=== PATIENT | male | born 1980 | race Hispanic/Latino ===

== ENCOUNTER 2017-05-31 22:48 | Emergency (ER) | payer OTHER ==
[2017-05-31 23:18] VITALS: BP 108/64; PULSE 62; RESP 18; TEMP 97.5; O2SAT 99
[2017-05-31] MEDS ORDERED: Glucagon Recombinant 1 mg Inj IM ONE (23:23)
--- NOTE | 2017-05-31 23:27 | ED PDOC ---
HPI: General Adult Time Seen by Provider: 05/31/17 23:05 Chief Complaint (Nursing): Abdominal Pain History Per: Patient Additional Complaint(s): Pt. states at approximately 2130 today he was eating boneless chicken strips when a piece of chicken became stuck in lower part of his throat. Pt. statse he attempted to vomit out the piece of food and also tried to drink water and eat carrots without relief. Pt. has had 2 similar occurrences and was able to treat himself at home. Denies pain, chest pain, SOB, sore throat. Past Medical History Reviewed: Historical Data, Nursing Documentation, Vital Signs Vital Signs: Last Vital Signs Temp 97.5 F L 05/31/17 23:05 Pulse 62 05/31/17 23:05 Resp 18 05/31/17 23:05 BP 108/64 05/31/17 23:05 Pulse Ox 99 05/31/17 23:27 - Family History Family History: States: No Known Family Hx - Allergies Allergies/Adverse Reactions: Allergies Allergy/AdvReac Type Severity Reaction Status Date / Time shellfish derived Allergy difficulty Verified 05/31/17 23:04 breathing Review of Systems ROS Statement: Except As Marked, All Systems Reviewed And Found Negative Physical Exam - Physical Exam Appears: Positive for: Well, Non-toxic, No Acute Distress Skin: Positive for: Normal Color, Warm. Negative for: Rash Eye Exam: Positive for: Normal appearance ENT: Positive for: Normal ENT Inspection. Negative for: Pharyngeal Erythema, Tonsillar Exudate, Tonsillar Swelling Cardiovascular/Chest: Positive for: Regular Rate, Rhythm Respiratory: Positive for: Normal Breath Sounds. Negative for: Stridor, Respiratory Distress Gastrointestinal/Abdominal: Positive for: Normal Exam, Soft. Negative for: Tenderness Neurologic/Psych: Positive for: Alert, Oriented. Negative for: Aphasia, Facial Droop - ECG O2 Sat by Pulse Oximetry: 99 - Radiology X-Ray: Interpreted by Me (Neck soft tissue, CXR) X-Ray Interpretation: No Acute Disease - Progress ED Course And Treament: CXR, neck soft tissue neck x-ray, glucagon 1mg IM ordered. Disposition - Clinical Impression Clinical Impression: Food impaction of esophagus - Patient ED Disposition Is Patient to be Admitted: Transfer of Care (Signed out to Vic MARTIN pending re -evaluation and final disposition.) - Disposition Disposition Time: 00:04 Condition: STABLE Forms: [facility] (Malay)
[2017-05-31] MEDS ORDERED: Glucagon Recombinant 1 mg Inj ONE (23:47)
--- NOTE | 2017-06-01 00:07 | ED PDOC ---
- ECG O2 Sat by Pulse Oximetry: 99 - Progress ED Course And Treament: Case endorsed to health underwriter from Kat MARTIN pending re-evaluation after medications administered Documentation Supervisor was not able to speak to patient as he walked out of ED after telling nurse he felt as if the food bolus "went down" shortly after Glucagon administered and symptoms had resolved. Disposition - Clinical Impression Clinical Impression: Food impaction of esophagus - POA Present On Arrival: None - Disposition Disposition: Routine/Home Disposition Time: 00:30 Condition: IMPROVED Instructions: Food Obstruction Forms: [facility] (Czech)
--- NOTE | 2017-06-01 08:18 | RAD ---
PROCEDURE: Radiographs of the neck (soft tissue). HISTORY: possible FB COMPARISON: None. TECHNIQUE: Frontal and Lateral Radiographs of the neck, optimized for soft tissue visualization. FINDINGS: SOFT TISSUES: Unremarkable. No radiopaque foreign body seen. CERVICAL SPINE: Grossly unremarkable. OTHER FINDINGS: None. IMPRESSION: Unremarkable radiographs of the soft tissues of the neck. No radiopaque foreign body appreciated
--- NOTE | 2017-06-01 08:20 | RAD ---
HISTORY: possible FB COMPARISON: No prior. TECHNIQUE: Chest PA and lateral FINDINGS: LUNGS: No active pulmonary disease. PLEURA: No significant pleural effusion identified. No pneumothorax apparent. CARDIOVASCULAR: Normal. OSSEOUS STRUCTURES: No significant abnormalities. VISUALIZED UPPER ABDOMEN: Normal. OTHER FINDINGS: None. IMPRESSION: No active disease.
== END 2017-06-01 00:46 | disposition home or self-care (01) ==
LOC: H.ER 22:48
DX: T18.128A Food in esophagus causing other injury, initial encounter (principal)
CPT/HCPCS: 70360; 71046; 96372; 99283; J1610